=== PATIENT | male | born 1970 | race Asian ===

== ENCOUNTER → 2018-05-12 | Outpatient (CLI) | payer OTHER ==
[2016-04-14 20:57] VITALS: BP 109/73
[~2018-05-12] MED LIST: HYDR-2758 PO
--- NOTE | 2018-05-12 14:47 | KCIC ---
PROCEDURE: CHEST AP ONLY CLINICAL INDICATION: Positive TB test. COMPARISON: None FINDINGS: No pneumothorax identified. Cardiac and mediastinal contours unremarkable. No pulmonary consolidation or acute airspace disease. No acute osseous abnormalities identified. IMPRESSION: No pulmonary consolidation or acute airspace disease. Electronically signed by: Aneesh Rangel DO (05/12/2018 2:44 PM) [id number]
== END | disposition home or self-care (01) ==
LOC: KCIC 11:42
PROVIDERS: ATTEND Family Medicine
DX: R76.11 Nonspecific reaction to tuberculin skin test without active tuberculosis (principal); F17.210 Nicotine dependence, cigarettes, uncomplicated
CPT/HCPCS: 71045